=== PATIENT | female | born 1990 | race Caucasian/White ===

== ENCOUNTER → 2016-09-28 | Outpatient (CLI) | payer OTHER ==
[~2016-09-28] MED LIST: ACHD5005 PO; AZIT-21 PO; BIRTH CONTROL PO; CEPH500C PO; DESO60OI5 TP; DOXY100C2 PO; FLUO20CA25; FLUO20CA25 PO; FLUO40CA12 PO; FRS325T PO; HYDR-707 PO; IBP600T1 PO; Ibuprofen PO; MTH.2T PO; NAPR-243 PO; NORG1TAB6 PO; ONDA8TAB9 PO; PREN-115 PO; PREN-93 PO; PREN1TAB64 PO; TRM50T PO
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
--- NOTE | 2016-09-28 14:54 | Diagnostic Imaging Report ---
EXAMINATION: Right breast ultrasound. INDICATION: Right breast pain. FINDINGS: There are superficial subcutaneous anechoic structures with some appearing to be connected and some are with no internal vascularity seen. No solid component is identified. These are favored to be related to cysts or dilated ducts. There is no suspicious mass identified. IMPRESSION: Scattered simple appearing cysts and dilated ducts with no suspicious mass. ACR BI-RADS Category 2: Benign findings. Dictated by: Dictated on workstation # [id number]
== END ==
LOC: RAD 07:36
PROVIDERS: ATTEND Family Medicine
DX: N60.11 Diffuse cystic mastopathy of right breast (principal); N60.41 Mammary duct ectasia of right breast
CPT/HCPCS: 76641

== ENCOUNTER 2016-10-21 10:13 | Emergency (ER) | payer SELFPAY ==
[~2016-10-21] VITALS: Ht 162.6 cm; Wt 68.0 kg
[~2016-10-21 10:13] MED LIST changes: -FLUO40CA12 PO
[2016-10-21] MEDS ORDERED: FLUO40CA12 PO (10:37)
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
--- NOTE | 2016-10-21 12:45 | Diagnostic Imaging Report ---
PROCEDURE: US PELVIC (NON OB). TECHNIQUE: Multiple real-time grayscale images were obtained over the pelvis in various projections transabdominally. INDICATION: Positive home test but the test in the ER is negative. Patient feels her IUD is out of place. Evaluate for location. COMPARISON: None available. FINDINGS: The uterus measures 6.6 x 4.1 x 3.2 cm. No myometrial mass. The echogenic IUD is appropriately positioned in the endometrial canal with the most proximal aspect at the level of the fundus. There are echogenic limbs of the IUD extending into the bilateral cornua. No endometrial fluid or thickening. Both ovaries are visualized and physiologic in appearance. The right ovary measures 3.3 x 3.0 x 2.0 cm. The left ovary measures 3.3 x 2.3 x 1.7 cm. Blood flow is seen in both ovaries by color Doppler and spectral duplex imaging. No free pelvic fluid or suspicious adnexal mass. IMPRESSION: 1. No evidence of intrauterine or ectopic . 2. The IUD is appropriately positioned within the endometrial canal with the proximal aspect of the IUD at the level of the fundus. 3. Physiologic appearance of both ovaries. Dictated by: Dictated on workstation # [id number]
[2016-10-21 12:58] VITALS: BP 121/77
--- OUTSIDE RECORDS SUMMARY | 2016-10-25 04:51 | XMS REPORT ---
Author JALEESA Crocker [facility] [employer] Address Unknown Phone Unavailable Care Team Providers Care Principal Bioinformatics Specialist Name Role Phone JALEESA SEVILLA CP Unavailable Allergies No Known Allergies Problems Problem Type Condition Code Onset Dates Condition Status Assessment Depression with anxiety F41.8 Active Problem Depression with anxiety F41.8 Active Medications Medication Code System Code Instructions Start Date End Date Status Dosage Prozac [facility] [address]-14 20 MG Orally Once a day. APPT REQUIRED BEFORE REFILL Jun 07, 2015 1 capsule in the morning Results No Known Results Summary Purpose [employer] Submission
--- OUTSIDE RECORDS SUMMARY | 2016-10-25 04:51 | XMS REPORT ---
Author MICHELL Worley Organization [employer] Address Unknown Phone Unavailable Care Team Providers Care Vat Washer Name Role Phone MICHELL HANNA CP Unavailable Allergies, Adverse Reactions, Alerts Substance Reaction Event Type Bactrim DS Info Not Available Drug Allergy Problems Problem Type Condition Code Onset Dates Condition Status Assessment Depression with anxiety F41.8 Active Problem Depression with anxiety F41.8 Active Medications Medication Code System Code Instructions Start Date End Date Status Dosage Prozac [facility] [address]-19 40 mg Orally Once a day May 05, 2016 1 capsule in the morning HydrOXYzine HCl [facility] [address]-65 25 MG Orally 2 times a day as needed for anxiety symptoms Jun 07, 2015 1 tablet as needed BusPIRone HCl [facility] [address]-15 10 mg Orally Twice a day prn May 05, [address] [facility] [address]-87 20 MCG/24HR Intrauterine not defined Prozac [facility] 44837952023 20 MG Orally Once a day one daily in the am Procedures Procedure Coding System Code Date Office Visit, Est Pt., Level 3 CPT-4 85881 May 05, 2016 Vital Signs Date/Time: May 05, 2016 Cardiac Monitoring Heart Rate 76 bpm Weight 146.9 lbs Height 65 in BMI 24.44 Index Blood Pressure Diastolic 72 mmHg Blood Pressure Systolic 112 mmHg Results No Known Results Summary Purpose [employer] Submission
--- OUTSIDE RECORDS SUMMARY | 2016-10-25 04:51 | XMS REPORT ---
Author MICHELL Worley [facility] [employer] Address Unknown Phone Unavailable Care Team Providers Care Clamp Operator Name Role Phone MICHELL HANNA Unavailable Allergies No Known Allergies Problems Problem Type Condition Code Onset Dates Condition Status Problem Depression with anxiety F41.8 Active Medications Medication Code System Code Instructions Start Date End Date Status Dosage Prozac [facility] [address]-94 40 mg Orally Once a day May 05, 2016 1 capsule in the morning Results No Known Results Summary Purpose [employer] Submission
--- OUTSIDE RECORDS SUMMARY | 2016-10-25 04:51 | XMS REPORT ---
Author Author KARISSA BHATIA Organization [employer] Address Unknown Phone Unavailable Care Team Providers Care Adobe Ball Mixer Name Role Phone KARISSA BHATIA CP Unavailable Allergies No Known Allergies Problems Problem Type Condition Code Onset Dates Condition Status Assessment Depression with anxiety F41.8 Active Problem Depression with anxiety F41.8 Active Medications No Known Medications Procedures Procedure Coding System Code Date Psych diagnostic evaluation, established patient CPT-4 77646 Jun 07, 2015 Results No Known Results Summary Purpose [employer] Submission
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
--- OUTSIDE RECORDS SUMMARY | 2016-10-25 04:52 | XMS REPORT ---
Author Author JALEESA SEVILLA [facility] [employer] Address Unknown Phone Unavailable Care Team Providers Care Metal Precision Machine Assembler Name Role Phone JALEESA SEVILLA CP Unavailable Allergies, Adverse Reactions, Alerts Substance Reaction Event Type Bactrim Ds 800-160 Mg Tablet Info Not Available Non Drug Allergy Problems Problem Type Condition Code Onset Dates Condition Status Assessment Depression with anxiety F41.8 Active Problem Depression with anxiety F41.8 Active Medications Medication Code System Code Instructions Start Date End Date Status Dosage HydrOXYzine HCl [facility] [address]-88 25 MG Orally 2 times a day as needed for anxiety symptoms Jun 07, 2015 1 tablet as needed Prozac [facility] [address]-63 20 MG Orally Once a day Jun 07, 2015 1 capsule in the morning Procedures Procedure Coding System Code Date Office Visit, Est Pt., Level 3 CPT-4 13658 Jun 07, 2015 Vital Signs Date/Time: Jun 07, 2015 Temperature 97.3 F Weight 146.6 lbs Height 65 in BMI 24.39 Index Blood Pressure Diastolic 70 mmHg Blood Pressure Systolic 110 mmHg Cardiac Monitoring Heart Rate 82 bpm Results No Known Results Summary Purpose eClinical[employer] Submission
--- OUTSIDE RECORDS SUMMARY | 2016-10-25 04:52 | XMS REPORT ---
Author JALEESA Crocker [facility] [employer] Address Unknown Phone Unavailable Care Team Providers Care Plush Brusher Name Role Phone JALEESA SEVILLA CP Unavailable Allergies, Adverse Reactions, Alerts Substance Reaction Event Type Bactrim Ds 800-160 Mg Tablet Info Not Available Non Drug Allergy Problems Problem Type Condition Code Onset Dates Condition Status Assessment Depression with anxiety F41.8 Active Assessment Encounter for immunization Z23 Active Problem Depression with anxiety F41.8 Active Medications Medication Code System Code Instructions Start Date End Date Status Dosage Prozac [facility] [address]-16 10 MG Orally Once a day May 03, 2015 1 capsule in the morning Procedures Procedure Coding System Code Date FLUARIX QUAD (3 & UP)-GSK CPT-4 14415 May 03, 2015 SINGLE IMMUNIZATION ADMIN CPT-4 57405 May 03, 2015 Office Visit, New Pt., Level 4 CPT-4 21631 May 03, 2015 Vital Signs Date/Time: May 03, 2015 Temperature 98.2 F Weight 149 lbs Height 65 in BMI 24.79 Index Blood Pressure Diastolic 80 mmHg Blood Pressure Systolic 112 mmHg Cardiac Monitoring Heart Rate 80 bpm Results No Known Results Immunizations Vaccine Administration Date FLUARIX QUAD (3 & UP)-GSK-2014May 03, 2015 Summary Purpose eClinicalWorks Submission
--- OUTSIDE RECORDS SUMMARY | 2016-10-25 04:52 | XMS REPORT ---
Author Author MICHELL HANNA [facility] Address [address] [place] [address] Care Team Providers Care Lab Coordinator Name Role Phone MICHELL HANNA Unavailable PROBLEMS Type Condition ICD9-CM Code [id number] Code Onset Dates Condition Status SNOMED Code Problem Depression with anxiety F41.8 Active [id number] ALLERGIES Unknown Allergies SOCIAL HISTORY No smoking Hx information available PLAN OF CARE VITAL SIGNS MEDICATIONS Medication Instructions Dosage Frequency Start Date End Date Duration Status Prozac 40 mg Orally Once a day- must attend 07/24 appt 1 capsule in the morning May, Active RESULTS No Results PROCEDURES No Known procedures IMMUNIZATIONS No Known Immunizations
== END 2016-10-21 12:58 | disposition home or self-care (01) ==
LOC: ER 10:13
DX: R10.31 Right lower quadrant pain (principal); Z32.02 Encounter for pregnancy test, result negative; F17.210 Nicotine dependence, cigarettes, uncomplicated
CPT/HCPCS: 76856; 84703; 99282

== ENCOUNTER 2018-02-08 10:50 | Emergency (ER) | payer SELFPAY ==
[~2018-02-08] VITALS: Ht 162.6 cm; Wt 79.4 kg
[~2018-02-08 10:50] MED LIST changes: +FLUO40CA12 PO
[2018-02-08 11:20] LABS: BILIRUBIN,URINE NEGATIVE (NEGATIVE); CLARITY,URINE CLEAR; COLOR,URINE YELLOW; GLUCOSE, URINE (UA) NEGATIVE (NEGATIVE); KETONES,URINE NEGATIVE (NEGATIVE); LEUKOCYTE ESTERASE ,URINE NEGATIVE (NEGATIVE); NITRITE,URINE NEGATIVE (NEGATIVE); PH,URINE 6.5 (5-9); PROTEIN,URINE NEGATIVE (NEGATIVE); UROBILINOGEN,URINE NORMAL (NORMAL)
[2018-02-08 11:26] LABS: BACTERIA,URINE TRACE /HPF; RBC,URINE RARE /HPF
--- NOTE | 2018-02-08 11:26 | ED Abdominal Pain ---
General Chief Complaint: Abdominal/GI Problems Stated Complaint: RLQ PAIN Source of Information: Patient Exam Limitations: No Limitations History of Present Illness Date Seen by Provider: Feb 08, 2018 Time Seen by Provider: 11:10 Initial Comments Patient is a 27-year-old female who presents to the emergency room with complaints of right lower quadrant abdominal pain started yesterday. She denies any vomiting, diarrhea, constipation, reports nausea for the past 2 days. She denies any hematuria, frequency, burning with urination. She reports that the pain comes and goes but is usually a constant pain of 4-5 out of 10 on the pain scale that has gradually been getting worse. The patient reports that the pain is worse with walking. Timing/Duration: 1-2 Days Severity/Quality: Mild Location: RLQ Radiation: No Radiation Activities at Onset: None Modifying Factors: Improves With Movement, Improves With Other (walking) Associated Symptoms: No Back Pain, No Chest Pain, No Diaphoresis, No Fatigue, No Headache; Nausea/Vomiting Allergies and Home Medications Allergies Coded Allergies: sulfamethoxazole (Unverified Allergy, Unknown, RASH, 11/18/13) trimethoprim (Unverified Allergy, Unknown, RASH, 11/18/13) Home Medications Fluoxetine HCl 40 Mg Capsule, 40 MG PO DAILY, (Reported) Patient Home Medication List Home Medication List Reviewed: Yes Review of Systems Constitutional: see HPI; No chills, No diaphoresis EENTM: No Symptoms Reported Respiratory: See HPI; Denies Cough, Denies Shortness of Air, Denies Wheezing Cardiovascular: See HPI; Denies Chest Pain, Denies Edema, Denies Palpitations Gastrointestinal: See HPI; Denies Abdomen Distended; Abdominal Pain; Denies Blood Streaked Stools, Denies Constipated, Denies Diarrhea, Denies Difficulty Swallowing; Nausea; Denies Vomiting Genitourinary: See HPI; Denies Burning, Denies Discharge, Denies Drainage Musculoskeletal: see HPI; No back pain, No gout, No joint pain Skin: see HPI; No change in color, No change in hair/nails Psychiatric/Neurological: See HPI; Denies Anxiety, Denies Depressed Endocrine: See HPI; Denies Excessive Sweating, Denies Flushing Hematologic/Lymphatic: See HPI; Denies Anemia, Denies Blood Clots All Other Systems Reviewed Negative Unless Noted: Yes Past Typxrtb-Zaktac-Hwjhjl Hx Past Med/Social Hx: Reviewed Nursing Past Med/Soc Hx Patient Social History Type Used: Cigarettes Recent Foreign Travel: No Contact w/Someone Who Travel: No Recent Hopitalizations: No Immunizations Up To Date Tetanus Booster (TDap): Less than 5yrs Seasonal Allergies Seasonal Allergies: No Past Medical History Adenoidectomy Reproductive Disorders: No Female Reproductive Disorders: Ovarian Cyst [employer] History: IUD Anxiety, Violent Behavior, Depression Eczema Adverse Reaction/Blood Tranf: No Family Medical History Reviewed Nursing Family Hx FH: rheumatoid arthritis 19 MOTHER, Onset:Childhood Physical Exam Vital Signs Vital Signs - First Documented 02/08/18 11:03 Temp 98.6 Pulse 91 Resp 18 B/P (MAP) 109/79 (89) Pulse Ox 98 O2 Delivery Room Air Capillary Refill : Height/Weight/BMI Height: 5', 4.00" Weight: 150lbs 6.0oz, [id number] Method:Stated ,30.55BMI General Appearance: WD/WN, no apparent distress HEENT: PERRL/EOMI, normal ENT inspection, TMs normal Neck: non-tender, full range of motion, supple Respiratory: chest non-tender, lungs clear, normal breath sounds, no respiratory distress, no accessory muscle use Cardiovascular: normal peripheral pulses, regular rate, rhythm, no edema, no gallop, no JVD, no murmur Gastrointestinal: normal bowel sounds, soft, no organomegaly, no pulsatile mass , tenderness (the patient is very tender in the right lower quadrant area. ), other (positive Leedey sign and the patient's right foot was dre.) Extremities: normal range of motion, non-tender, normal inspection, no pedal edema, no calf tenderness Back: normal inspection, no CVA tenderness, no vertebral tenderness Neurologic/Psychiatric: alert, normal mood/affect, oriented x 3 Skin: normal color, warm/dry Lymphatic: no adenopathy Progress/Results/Core Measures Results/Orders Lab Results Laboratory Tests Test 02/08/18 11:08 02/08/18 11:35 Range/Units Urine Color YELLOW Urine Clarity CLEAR Urine pH 6.5 5-9 Urine Specific [place] 1.010 L 1.016-1.022 Urine Protein NEGATIVE NEGATIVE Urine Glucose (UA) NEGATIVE NEGATIVE Urine Ketones NEGATIVE NEGATIVE Urine Nitrite NEGATIVE NEGATIVE Urine Bilirubin NEGATIVE NEGATIVE Urine Urobilinogen NORMAL NORMAL MG/DL Urine Leukocyte Esterase NEGATIVE NEGATIVE Urine RBC (Auto) NEGATIVE NEGATIVE Urine RBC RARE /HPF Urine WBC NONE /HPF Urine Squamous Epithelial Cells 2-5 /HPF Urine Crystals NONE /LPF Urine Bacteria TRACE /HPF Urine Casts NONE /LPF Urine Mucus NEGATIVE /LPF Urine Culture Indicated NO White Blood Count 7.0 4.3-11.0 10^3/uL Red Blood Count 4.17 L 4.35-5.85 10^6/uL Hemoglobin 14.1 11.5-16.0 G/DL Hematocrit 41 35-52 % Mean Corpuscular Volume 98 80-99 FL Mean Corpuscular Hemoglobin 34 25-34 PG Mean Corpuscular Hemoglobin Concent 35 32-36 G/DL Red Cell Distribution Width 12.4 10.0-14.5 % Platelet Count 195 130-400 10^3/uL Mean Platelet Volume 10.6 H 7.4-10.4 FL Neutrophils (%) (Auto) 65 42-75 % Lymphocytes (%) (Auto) 25 12-44 % Monocytes (%) (Auto) 7 0-12 % Eosinophils (%) (Auto) 3 0-10 % Basophils (%) (Auto) 0 0-10 % Neutrophils # (Auto) 4.6 1.8-7.8 X 10^3 Lymphocytes # (Auto) 1.8 1.0-4.0 X 10^3 Monocytes # (Auto) 0.5 0.0-1.0 X 10^3 Eosinophils # (Auto) 0.2 0.0-0.3 10^3/uL Basophils # (Auto) 0.0 0.0-0.1 10^3/uL Sodium Level 139 135-145 MMOL/L Potassium Level 3.9 3.6-5.0 MMOL/L Chloride Level 107 98-107 MMOL/L Carbon Dioxide Level 24 21-32 MMOL/L Anion Gap 8 5-14 MMOL/L Blood Urea Nitrogen 10 7-18 MG/DL Creatinine 0.74 0.60-1.30 MG/DL Estimat Glomerular Filtration Rate > 60 BUN/Creatinine Ratio 14 Glucose Level 87 70-105 MG/DL Calcium Level 9.4 8.5-10.1 MG/DL Total Bilirubin 0.5 0.1-1.0 MG/DL Aspartate Amino Transf (AST/SGOT) 17 5-34 U/L Alanine Aminotransferase (ALT/SGPT) 16 0-55 U/L Alkaline Phosphatase 54 40-136 U/L Total Protein 6.9 6.4-8.2 GM/DL Albumin 4.2 3.2-4.5 GM/DL My Orders Orders - DEVIN BAXTER Ua Culture If Indicated (02/08/18 10:55) Urine Bedside (02/08/18 10:55) Ketorolac Injection (Toradol Injection) (02/08/18 11:30) Ns Iv 1000 Ml (Sodium Chloride 0.9%) (02/08/18 11:30) Ondansetron Injection (Zofran Injectio (02/08/18 11:30) Comprehensive Metabolic Panel (02/08/18 11:19) Saline Lock/Iv-Start (02/08/18 11:19) Cbc With Automated Diff (02/08/18 11:19) Ct Abdomen/Pelvis W (02/08/18 11:46) Iohexol Injection (Omnipaque 350 Mg/Ml 1 (02/08/18 12:00) Ns (Ivpb) (Sodium Chloride 0.9%) (02/08/18 12:00) Pharmacy Communication (Pharmacy Communi (02/08/18 11:48) Iv Push [employer] Technician Ed (02/08/18 ) Medications Given in ED Vital Signs/I&O 02/08/18 02/08/18 02/08/18 11:03 12:19 13:27 Temp 98.6 98.2 98.6 Pulse 91 62 72 Resp 18 20 20 B/P (MAP) 109/79 (89) 103/69 (80) 111/67 (80) Pulse Ox 98 99 99 O2 Delivery Room Air Room Air Room Air Progress Progress Note : Time: 13:05 Progress Note The patient's pain has resolved at this time, her nausea is gone. She agrees with complains of discharge and close follow-up with Dao Bo at [facility]. A prescription for Zofran 4 mg every 4 hours when necessary was sent with the patient. Diagnostic Imaging Diagonstic Imaging: CT Plain Films/CT/US/NM/MRI: abdomen, pelvis Comments [facility] [place] NAME: GARY SEWELL Clint MED REC#: [id number] PT STATUS: REG ER : 1990 PHYSICIAN: DEVIN BAXTER ADMIT DATE: 02/08/18/ER Draft Date of Exam:02/08/18 CT ABDOMEN/PELVIS W PROCEDURE: CT abdomen and pelvis with contrast. TECHNIQUE: Multiple contiguous axial images were obtained through the abdomen and pelvis after administration of intravenous contrast. INDICATION: Right lower quadrant pain. FINDINGS: The previous CT abdomen/pelvis exam of 01/14/2016 failed to show any sign of an acute abnormality of the abdomen or pelvis. On this exam, the appendix was not particularly well visualized, but the appendix is not seen to be abnormally thickened. There are no indirect signs of acute appendicitis either. The uterus is anteverted and not enlarged. The IUD seen on the prior exam has been removed. The urinary bladder is grossly unremarkable. There is no pelvic mass or free fluid collection noted. The liver, spleen, pancreas, adrenals, kidneys, gallbladder, aorta, and inferior vena cava are unremarkable for an acute abnormality. The stomach is partially filled with fluid and consequently difficult to assess. There is no obvious gastric abnormality evident. The lung bases are clear. The bone windows show no evidence for an acute fracture. The deformity of the sacrococcygeal junction seen previously is again evident and no different. IMPRESSION: 1. The appendix was not well visualized, but the appendix is not seen to be abnormally thickened, and there is no indirect sign of acute appendicitis at this time. Clinical followup is recommended. 2. There is no acute abnormality of the abdomen or pelvis noted. 3. The IUD seen on the prior study has been removed. Dictated on workstation # [id number] Dict: 02/08/18 1240 Trans: 02/08/18 1251 [id number] Interpreted by: FLAKITO ALATORRE MD Electronically signed by: Reviewed: Reviewed by Me Departure Impression Primary Impression: Abdominal pain Qualified Codes: R10.9 - Unspecified abdominal pain Additional Impression: Nausea alone Disposition: 01 HOME, SELF-CARE Condition: Stable/Unchanged Departure-Patient Inst. Decision time for Depature: 13:04 Referrals: DAO BO APRN (PCP) Primary Care Physician Patient Instructions: Acute Abdomen (Belly Pain), Adult (DC) Add. Discharge Instructions: Take medications as directed. You may use ibuprofen and Tylenol as directed by the bottle for pain relief. Return back to the emergency room for any increased pain, nausea, vomiting, or any other concerns as needed. Follow-up with Dao Bo at [facility] within 1 week for evaluation. Call today for an appointment time. All discharge instructions reviewed with patient and/or family. Voiced understanding. Copy Copies To 1: [facility]/DEVIN SAGASTUME Feb 08, 2018 11:26
[2018-02-08] MEDS ORDERED: KETOROLAC 30 MG/ML VIAL IVP ONE (11:30)
[2018-02-08] MEDS ORDERED: ONDANSETRON 4 MG/2 ML (SDV) Z0FRAN IVP ONE (11:30)
[2018-02-08] MEDS ORDERED: NS IV 1000 ML 1,000 ML IV SCH (11:30)
[2018-02-08 11:47] LABS: BASOPHILS % (AUTO) 0 % (0-10); EOSINOPHILS # (AUTO) 0.2 10^3/uL (0.0-0.3); EOSINOPHILS % (AUTO) 3 % (0-10); HEMATOCRIT 41 % (35-52); HEMOGLOBIN 14.1 G/DL (11.5-16.0); LYMPHOCYTES # (AUTO) 1.8 X 10^3 (1.0-4.0); LYMPHOCYTES % (AUTO) 25 % (12-44); MEAN CORPUSCULAR HEMOGLOBIN 34 PG (25-34); MEAN CORPUSCULAR HGB CONC 35 G/DL (32-36); MEAN CORPUSCULAR VOLUME 98 FL (80-99); MEAN PLATELET VOLUME 10.6 FL (7.4-10.4); MONOCYTES # (AUTO) 0.5 X 10^3 (0.0-1.0); MONOCYTES % (AUTO) 7 % (0-12); NEUTROPHILS # (AUTO) 4.6 X 10^3 (1.8-7.8); NEUTROPHILS % (AUTO) 65 % (42-75); PLATELET COUNT 195 10^3/uL (130-400); RED BLOOD COUNT 4.17 10^6/uL (4.35-5.85); RED CELL DISTRIBUTION WIDTH 12.4 % (10.0-14.5)
[2018-02-08] MEDS ORDERED: IOHEXOL 350 MG/ML 100 ML (OMNIPAQUE 350) VIAL IV ONE (12:00)
[2018-02-08] MEDS ORDERED: NS 250 ML (IVPB) BAG IV ONE (12:00)
[2018-02-08 12:12] LABS: ALANINE AMINOTRANSFERASE 16 U/L (0-55); ALBUMIN 4.2 GM/DL (3.2-4.5); ALKALINE PHOSPHATASE 54 U/L (40-136); BILIRUBIN,TOTAL 0.5 MG/DL (0.1-1.0); BUN/CREATININE RATIO 14; CALCIUM 9.4 MG/DL (8.5-10.1); CARBON DIOXIDE 24 MMOL/L (21-32); CHLORIDE 107 MMOL/L (98-107); CREATININE SERUM 0.74 MG/DL (0.60-1.30); GFR ESTIMATED > 60; GLUCOSE 87 MG/DL (70-105); POTASSIUM 3.9 MMOL/L (3.6-5.0); SODIUM 139 MMOL/L (135-145); TOTAL PROTEIN 6.9 GM/DL (6.4-8.2)
[2018-02-08 12:19] VITALS: BP 103/69
--- NOTE | 2018-02-08 12:52 | Diagnostic Imaging Report ---
PROCEDURE: CT abdomen and pelvis with contrast. TECHNIQUE: Multiple contiguous axial images were obtained through the abdomen and pelvis after administration of intravenous contrast. INDICATION: Right lower quadrant pain. FINDINGS: The previous CT abdomen/pelvis exam of 01/14/2016 failed to show any sign of an acute abnormality of the abdomen or pelvis. On this exam, the appendix was not particularly well visualized, but the appendix is not seen to be abnormally thickened. There are no indirect signs of acute appendicitis either. The uterus is anteverted and not enlarged. The IUD seen on the prior exam has been removed. The urinary bladder is grossly unremarkable. There is no pelvic mass or free fluid collection noted. The liver, spleen, pancreas, adrenals, kidneys, gallbladder, aorta, and inferior vena cava are unremarkable for an acute abnormality. The stomach is partially filled with fluid and consequently difficult to assess. There is no obvious gastric abnormality evident. The lung bases are clear. The bone windows show no evidence for an acute fracture. The deformity of the sacrococcygeal junction seen previously is again evident and no different. IMPRESSION: 1. The appendix was not well visualized, but the appendix does not seem to be abnormally thickened, and there are no indirect sign of acute appendicitis at this time. Clinical followup is recommended. 2. There is no acute abnormality of the abdomen or pelvis noted otherwise.. 3. The IUD seen on the prior study has been removed. Dictated by: Dictated on workstation # [id number]
[2018-02-08 13:27] VITALS: BP 111/67
== END 2018-02-08 13:27 | disposition home or self-care (01) ==
LOC: EDUNIT# 10:50 → ER 10:52
DX: R10.31 Right lower quadrant pain (principal); R11.0 Nausea; F32.9 Major depressive disorder, single episode, unspecified; Z88.2 Allergy status to sulfonamides; Z88.1 Allergy status to other antibiotic agents; Z90.89 Acquired absence of other organs
CPT/HCPCS: 36415; 74177; 80053; 81000; 84703; 85025; 96361; 96374; 96375

== ENCOUNTER → 2019-12-05 | Outpatient (CLI) | payer MEDICAID ==
[~2019-12-05] MED LIST changes: -FLUO20CA25 PO; +FLUO20CA46 PO
--- NOTE | 2019-12-05 15:09 | Diagnostic Imaging Report ---
INDICATION: survey. TECHNIQUE: Multiple Real-time grayscale images were obtained over the gravid uterus. COMPARISON: There are no prior studies available for comparison. FINDINGS: There is a single live fetus in cephalic presentation. heart motion was noted and a rate of 160 BPM was recorded. There were no abnormalities identified; however, the spine was not well visualized due to lie. A short-term (4-6 week) followup exam would be recommended for further evaluation of the spine. The placenta is posterior and there does appear to be at least a partial placenta previa. The position of the placenta could also be further evaluated on the followup exam. The cervix was identified and measures 3.2 cm in length. The amniotic fluid volume is within normal limits. The growth parameters are fairly uniform. Biometrical measurements are as follows: Biparietal 4.10 cm, age 18 weeks 4 days. Head circumference 14.98 cm, age 18 weeks 1 days. Abdominal circumference 12.20 cm, age 18 weeks 0 days. Femur length 2.80 cm, age 18 weeks 4 days. Sonographic estimate age: 18 weeks 3 days. Sonographic estimated date of delivery: 05/04/2020. Estimated Weight: 228 gm (+/- 33 gm). LMP percentile: 19%. heart rate: 160 beats per minute. number: 1 of 1. IMPRESSION: 1. There is a single live fetus of approximately 18 weeks 3 days gestation +/- 1.5 weeks. The EDC is 05/04/2020. 2. There are no abnormalities identified but the spine was not well visualized. A short-term (4-6 week) followup ultrasound exam would be recommended for further evaluation. The partial posterior placenta previa seen previously could also be further evaluated at that time. 3. The growth parameters are fairly uniform. Dictated by: Dictated on workstation # [id number]
== END ==
LOC: RAD 11:06
PROVIDERS: ATTEND Obstetrics & Gynecology
DX: Z34.92 Encounter for supervision of normal pregnancy, unspecified, second trimester (principal); Z3A.18 18 weeks gestation of pregnancy
CPT/HCPCS: 76805

== ENCOUNTER 2019-12-24 04:02 | Outpatient (CLI) | payer MEDICAID ==
[~2019-12-24] VITALS: Ht 162.6 cm; Wt 66.9 kg
--- NOTE | 2019-12-24 04:17 | NUR ---
GARY SEWELL presented to unit via WC from ED, accompanied by friend, with c/o N/V. GARY SEWELL weighed, gowned, voided, and to bed. EFHM and TOCO applied, VS taken. GARY SEWELL oriented to bed controls, call light, TV, heat, and A/C controls.
[2019-12-24] MEDS ORDERED: NS IV 1000 ML 1,000 ML ONE (04:21)
[2019-12-24] MEDS ORDERED: PROMETHAZINE INJ 25 MG/ML (PHENERGAN) AMP ONE (04:25)
--- NOTE | 2019-12-24 04:26 | NUR ---
Call to Dr Garcia at this time.
[2019-12-24 04:27] VITALS: BP 89/53
[2019-12-24] MEDS ORDERED: PROMETHAZINE INJ 25 MG/ML (PHENERGAN) AMP IVP PRN (04:30)
[2019-12-24] MEDS ORDERED: NS IV 1000 ML 1,000 ML IV SCH (04:30)
[2019-12-24 04:53] VITALS: BP 89/53
[2019-12-24 05:15] LABS: BASOPHILS % (AUTO) 0 % (0-10); EOSINOPHILS % (AUTO) 0 % (0-10); HEMATOCRIT 40 % (35-52); HEMOGLOBIN 13.6 G/DL (11.5-16.0); LYMPHOCYTES # (AUTO) 1.1 X 10^3 (1.0-4.0); LYMPHOCYTES % (AUTO) 8 % (12-44); MEAN CORPUSCULAR HEMOGLOBIN 33 PG (25-34); MEAN CORPUSCULAR HGB CONC 34 G/DL (32-36); MEAN CORPUSCULAR VOLUME 98 FL (80-99); MEAN PLATELET VOLUME 10.9 FL (7.4-10.4); MONOCYTES # (AUTO) 0.5 X 10^3 (0.0-1.0); MONOCYTES % (AUTO) 3 % (0-12); NEUTROPHILS # (AUTO) 12.4 X 10^3 (1.8-7.8); NEUTROPHILS % (AUTO) 89 % (42-75); PLATELET COUNT 259 10^3/uL (130-400); RED CELL DISTRIBUTION WIDTH 12.7 % (10.0-14.5)
[2019-12-24 05:19] LABS: CHLORIDE 108 MMOL/L (98-107); POTASSIUM 3.4 MMOL/L (3.6-5.0); SODIUM 139 MMOL/L (135-145)
[2019-12-24 05:20] LABS: CALCIUM 9.3 MG/DL (8.5-10.1)
[2019-12-24 05:21] LABS: GLUCOSE 131 MG/DL (70-105); TOTAL PROTEIN 7.3 GM/DL (6.4-8.2)
[2019-12-24 05:22] LABS: CARBON DIOXIDE 19 MMOL/L (21-32)
[2019-12-24 05:23] LABS: CLARITY,URINE CLEAR; COLOR,URINE YELLOW; GLUCOSE, URINE (UA) NEGATIVE (NEGATIVE); KETONES,URINE 3+ (NEGATIVE); LEUKOCYTE ESTERASE ,URINE TRACE (NEGATIVE); NITRITE,URINE NEGATIVE (NEGATIVE); PH,URINE 7.5 (5-9); PROTEIN,URINE 1+ (NEGATIVE)
[2019-12-24 05:23] LABS: BILIRUBIN,TOTAL 0.4 MG/DL (0.1-1.0)
[2019-12-24 05:25] LABS: ALKALINE PHOSPHATASE 51 U/L (40-136); CREATININE SERUM 0.67 MG/DL (0.60-1.30); GFR ESTIMATED > 60
[2019-12-24 05:26] LABS: BUN/CREATININE RATIO 10
[2019-12-24 05:28] LABS: ALANINE AMINOTRANSFERASE 16 U/L (0-55)
[2019-12-24 05:39] LABS: BILIRUBIN,URINE 1+ (NEGATIVE)
[2019-12-24 05:52] LABS: BACTERIA,URINE TRACE /HPF; RBC,URINE 0-2 /HPF; YEAST,URINE FEW /HPF
[2019-12-24 05:56] VITALS: BP 89/53
[2019-12-24] MEDS ORDERED: PROM25TA14 PO (06:06)
[2019-12-24 06:11] VITALS: BP 90/51
--- NOTE | 2019-12-24 06:12 | NUR ---
Orders for discharge obtained, FHR 140 VS stable and pt willing to go home.
--- NOTE | 2019-12-24 06:15 | NUR ---
crackers and sprite given for oral challenge
--- NOTE | 2019-12-24 06:17 | NUR ---
Linda called into [facility]
--- NOTE | 2019-12-24 06:30 | NUR ---
Pt is feeling better. able to keep po challenge down. along with crackers. Pt ready for discharge. Discharge paperwork completed. pt verbalized understanding. pt will follow up with in office.
[2019-12-24 06:34] VITALS: BP 90/51
--- NOTE | 2019-12-26 08:24 | Physician Query-Final Dx ---
Clinic Account Progress/Dx Physician Query: Please give diagnosis Please include # weeks gestation Date of Service December 24, 2019 at 04:02 DORINA CORTEZ December 26, 2019 08:23
== END 2019-12-24 06:30 ==
LOC: WSo 04:02 → LDRP 04:04 → WSo 06:30
PROVIDERS: ATTEND Obstetrics & Gynecology
DX: O21.9 Vomiting of pregnancy, unspecified (principal)
CPT/HCPCS: 36415; 80053; 81000; 85025; 87088; 96361; 96374; 99213

== ENCOUNTER → 2020-01-16 | Outpatient (CLI) | payer MEDICAID ==
[~2020-01-16] MED LIST changes: +PROM25TA14 PO
--- NOTE | 2020-01-16 14:43 | Diagnostic Imaging Report ---
INDICATION: Followup spine and placenta previa. TECHNIQUE: Multiple Real-time grayscale images were obtained over the gravid uterus. COMPARISON: 12/05/2019. FINDINGS: There is a single live fetus in a cephalic presentation. The heart rate was recorded at 139 BPM. The posterior placenta continues to be in a marginal location in relation to the internal cervical os. This does not appear to completely cover the os. The visualized spine is unremarkable. The amniotic fluid volume is normal. IMPRESSION: Marginal posterior placenta previa. The spine is unremarkable. Dictated by: Dictated on workstation # [id number]
== END ==
LOC: RAD 11:58
PROVIDERS: ATTEND Nurse Practitioner Women's Health
DX: O44.20 Partial placenta previa NOS or without hemorrhage, unspecified trimester (principal)
CPT/HCPCS: 76816

== ENCOUNTER → 2020-02-21 | Outpatient (CLI) | payer MEDICAID ==
--- NOTE | 2020-02-21 15:47 | Diagnostic Imaging Report ---
INDICATION: Marginal placenta previa. TECHNIQUE: Multiple real-time grayscale images were obtained over the gravid uterus. COMPARISON: 01/16/2020. FINDINGS: There is a single live fetus in a cephalic presentation. heart rate was recorded at 132 bpm. Posterior placenta continues to be in a marginal location with tip approximately 9 mm from the internal cervical os. Amniotic fluid index is 12.9 cm. Biometrical measurements are as follows: Biparietal 7.66 cm, age 30 weeks 6 days. Head circumference 27.84 cm, age 30 weeks 4 days. Abdominal circumference 24.85 cm, age 29 weeks 1 days. Femur length 5.79 cm, age 30 weeks 3 days. Sonographic estimate age: 30 weeks 2 days. Sonographic estimated date of delivery: 04/29/2020. Estimated Weight: 1444 gm (+/- 211 gm). LMP percentile: 33%. heart rate: 132 beats per minute. number: 1 of 1. IMPRESSION: Single live IUP approximately 30 weeks gestational age. Placenta continues to be in a marginal location. Dictated by: Dictated on workstation # [id number]
== END ==
LOC: RAD 13:49
PROVIDERS: ATTEND Obstetrics & Gynecology
DX: O44.20 Partial placenta previa NOS or without hemorrhage, unspecified trimester (principal); Z3A.30 30 weeks gestation of pregnancy
CPT/HCPCS: 76805

== ENCOUNTER 2020-04-11 00:04 | Emergency (ER) | payer MEDICAID ==
[~2020-04-11] VITALS: Ht 162 cm; Wt 74.8 kg
[2020-04-11] MEDS ORDERED: LACTATED RINGERS 1,000 ML IV ONE (00:32)
[2020-04-11] MEDS ORDERED: ONDANSETRON 4 MG/2 ML (SDV) Z0FRAN IVP ONE (00:45)
--- NOTE | 2020-04-11 01:23 | ED General ---
General Stated Complaint: SOB,VOMITING Source of Information: Patient History of Present Illness Date Seen by Provider: Apr 11, 2020 Time Seen by Provider: 00:35 Initial Comments PT ARRIVES VIA POV FROM HOME STATES SHE STARTED GETTING SICK 2- 3 DAYS AGO WITH NON PRODUCTIVE COUGH AND CHEST AND NASAL CONGESTION IS STARTING TO BECOME SHORT OF BREATH TODAY HAS HAD NAUSEA/VOMITING /DIARRHEA--HAS VOMITED AT LEAST 10 TIMES TODAY, HAS HAD DIARRHEA X 1 NO ABDOMINAL PAIN HAS HAD SWEATS AND CHILLS, HAS NOT CHECKED TEMP NO CHEST PAIN NO SWELLING IN LEGS/ FEET HAS HAD DECREASED URINE OUTPUT TODAY PT IS 37 WEEKS GESTATION WITH EDC OF 05/02/20 NO PROBLEMS WITH THIS NO CURRENT CONTRACTIONS OR VAGINAL BLEEDING DAUGHTER AND HAVE HAD COUGH/CONGESTION--BOTH TESTED NEGATIVE FOR COVID --DAUGHTER LAST WEEK, AND 2 WEEKS AGO WORKS AT [employer] ( VERY HIGH PERCENTAGE OF WORKERS HAVE TESTED POSITIVE FOR COVID-19 THERE) RESP THER: DR. RANDALL--BUT HAS BEEN OUT OF OFFICE, AND EITHER DR. KHOURY OR DR. JONES WILL DO DELIVERY Allergies and Home Medications Allergies Coded Allergies: sulfamethoxazole (Unverified Allergy, Unknown, RASH, 04/11/20) trimethoprim (Unverified Allergy, Unknown, RASH, 04/11/20) Home Medications Azithromycin 500 Mg Tablet, 500 MG PO DAILY Prescribed by: GIANNI RICHARD on 04/11/20237 Cefdinir 300 Mg Capsule, 300 MG PO BID Prescribed by: GIANNI RICHARD on 04/11/20237 Fluoxetine HCl 40 Mg Capsule, 40 MG PO DAILY, (Reported) L. Acidophilus/Pectin, [place] 1 Each Capsule, 2 EACH PO QID Prescribed by: GIANNI RICHARD on 04/11/20237 Ondansetron 4 Mg Tab.rapdis, 4 MG PO Q4H Prescribed by: GIANNI RICHARD on 04/11/20237 Promethazine HCl 25 Mg Tablet, 25 MG PO Q6H PRN for NAUSEA/VOMITING Prescribed by: FARTUN OLIVERA on 12/24/19 0606 Patient Home Medication List Home Medication List Reviewed: Yes Review of Systems Review of Systems Constitutional: chills, diaphoresis, weakness EENTM: nose congestion Respiratory: cough, short of breath Cardiovascular: No chest pain, No edema Gastrointestinal: No abdominal pain; diarrhea, loss of appetite, nausea, vomiting Genitourinary: decreased output; No dysuria Past Upvfaii-Ekonlf-Cgkcnu Hx Past Med/Social Hx: Reviewed and Corrections made Patient Social History Smoking Status: Current Everyday Smoker (1 1/2 PPD) Type Used: Cigarettes 2nd Hand Smoke Exposure: No Recent Foreign Travel: No Contact w/Someone Who Travel: No Recent Hopitalizations: No Immunizations Up To Date Tetanus Booster (TDap): Less than 5yrs Seasonal Allergies Seasonal Allergies: No Past Medical History Surgeries: Yes (D&C) Adenoidectomy Respiratory: No Cardiac: No Neurological: No : Yes Expected Date of Delivery: May 02, 2020 Reproductive Disorders: Yes Female Reproductive Disorders: Ovarian Cyst Genitourinary: No Gastrointestinal: No Musculoskeletal: No Endocrine: No HEENT: No Cancer: No Psychosocial: No Anxiety, Violent Behavior, Depression Integumentary: Yes Eczema Blood Disorders: No Adverse Reaction/Blood Tranf: No Family Medical History FH: rheumatoid arthritis 19 MOTHER, Onset:Childhood Physical Exam Vital Signs Vital Signs - First Documented 04/11/20 01:00 Temp 36.8 Pulse 98 Resp 18 B/P (MAP) 130/78 (95) Pulse Ox 98 Capillary Refill : Height, Weight, BMI Height: 5'4.00" Weight: 175lbs. 6.0oz. 79.728582ts; 25.30 BMI Method:Stated General Appearance: No Apparent Distress, WD/WN, Other (DOES NOT APPEAR ILL, OCCASIONAL LOOSE COUGH) HEENT: PERRL/EOMI, TMs Normal, Normal ENT Inspection, Pharynx Normal, Moist Mucous Membranes, Other (NO SINUS TENDERNESS) Neck: Full Range of Motion, Normal Inspection, Non Tender, Supple; No JVD Respiratory: No Accessory Muscle Use, No Respiratory Distress, Rales (IN RLL) Cardiovascular: Regular Rate, Rhythm, No Edema, No JVD, No Murmur Gastrointestinal: Non Tender, Soft, Other (GRAVID UTERUS NEAR TERM) Back: Normal Inspection, No CVA Tenderness Extremity: Normal Capillary Refill, Normal Inspection, Normal Range of Motion, Non Tender, No Calf Tenderness, No Pedal Edema Neurologic/Psychiatric: Alert, Oriented x3, No Motor/Sensory Deficits, Normal 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, 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 Norm as Tested Skin: Normal Color, Warm/Dry Focused Exam Lactate Level 04/11/20 01:00: Lactic Acid Level 1.39 Lactic Acid Level Laboratory Tests Test 04/11/20 01:00 Lactic Acid Level 1.39 MMOL/L (0.50-2.00) Progress/Results/Core Measures Suspected Sepsis SIRS Temperature: Pulse: Respiratory Rate: Laboratory Tests 04/11/20 01:00: White Blood Count 13.8H Blood Pressure / Mean: 04/11/20 01:00: Lactic Acid Level 1.39 Laboratory Tests 04/11/20 01:00: Creatinine 0.64, INR Comment 0.9, Platelet Count 271, Total Bilirubin 0.6 Results/Orders Lab Results Laboratory Tests Test 04/11/20 01:00 04/11/20 01:17 04/11/20 02:00 Range/Units White Blood Count 13.8 H 4.3-11.0 10^3/uL Red Blood Count 4.10 L 4.35-5.85 10^6/uL Hemoglobin 13.8 11.5-16.0 G/DL Hematocrit 40 35-52 % Mean Corpuscular Volume 98 80-99 FL Mean Corpuscular Hemoglobin 34 25-34 PG Mean Corpuscular Hemoglobin Concent 34 32-36 G/DL Red Cell Distribution Width 12.4 10.0-14.5 % Platelet Count 271 130-400 10^3/uL Mean Platelet Volume 10.8 H 7.4-10.4 FL Neutrophils (%) (Auto) 85 H 42-75 % Lymphocytes (%) (Auto) 10 L 12-44 % Monocytes (%) (Auto) 5 0-12 % Eosinophils (%) (Auto) 0 0-10 % Basophils (%) (Auto) 0 0-10 % Neutrophils # (Auto) 11.7 H 1.8-7.8 X 10^3 Lymphocytes # (Auto) 1.4 1.0-4.0 X 10^3 Monocytes # (Auto) 0.7 0.0-1.0 X 10^3 Eosinophils # (Auto) 0.0 0.0-0.3 10^3/uL Basophils # (Auto) 0.0 0.0-0.1 10^3/uL Neutrophils % (Manual) 86 % Lymphocytes % (Manual) 8 % Monocytes % (Manual) 4 % Atypical Lymphocytes 2 % Hypochromasia SLIGHT Anisocytosis SLIGHT Microcytosis SLIGHT Erythrocyte Sedimentation Rate 38 H 0-20 MM/HR Prothrombin Time 13.0 12.2-14.7 SEC INR Comment 0.9 0.8-1.4 Activated Partial Thromboplast Time 27 24-35 SEC Sodium Level 135 135-145 MMOL/L Potassium Level 3.8 3.6-5.0 MMOL/L Chloride Level 106 98-107 MMOL/L Carbon Dioxide Level 15 L 21-32 MMOL/L Anion Gap 14 5-14 MMOL/L Blood Urea Nitrogen 8 7-18 MG/DL Creatinine 0.64 0.60-1.30 MG/DL Estimat Glomerular Filtration Rate > 60 BUN/Creatinine Ratio 13 Glucose Level 88 70-105 MG/DL Lactic Acid Level 1.39 0.50-2.00 MMOL/L Calcium Level 9.4 8.5-10.1 MG/DL Corrected Calcium 9.6 8.5-10.1 MG/DL Magnesium Level 1.5 L 1.6-2.4 MG/DL Total Bilirubin 0.6 0.1-1.0 MG/DL Aspartate Amino Transf (AST/SGOT) 17 5-34 U/L Alanine Aminotransferase (ALT/SGPT) 16 0-55 U/L Alkaline Phosphatase 132 40-136 U/L Troponin I < 0.028 <0.028 NG/ML C-Reactive Protein High Sensitivity 0.79 H 0.00-0.50 MG/DL B-Type Natriuretic Peptide < 10.0 <100.0 PG/ML Total Protein 7.4 6.4-8.2 GM/DL Albumin 3.7 3.2-4.5 GM/DL Amylase Level 53 25-125 U/L Procalcitonin 0.02 <0.10 NG/ML Coronavirus 2019 (JOCELYN) Negative Negative Urine Color YELLOW Urine Clarity SL CLOUDY Urine pH 5.5 5-9 Urine Specific [place] >=1.030 1.016-1.022 Urine Protein 1+ H NEGATIVE Urine Glucose (UA) NEGATIVE NEGATIVE Urine Ketones 3+ H NEGATIVE Urine Nitrite NEGATIVE NEGATIVE Urine Bilirubin 1+ H NEGATIVE Urine Urobilinogen 1.0 < = 1.0 MG/DL Urine Leukocyte Esterase NEGATIVE NEGATIVE Urine RBC (Auto) 1+ H NEGATIVE Urine RBC 0-2 /HPF Urine WBC 2-5 /HPF Urine Squamous Epithelial Cells 2-5 /HPF Urine Crystals NONE /LPF Urine Bacteria FEW H /HPF Urine Casts NONE /LPF Urine Mucus SMALL H /LPF Urine Culture Indicated YES Micro Results Microbiology 04/11/20 Influenza Types A,B Antigen ([facility]) - Final, Complete My Orders Orders - GIANNI RICHARD DO Heart Tones (04/11/20 00:32) Monitor-Rhythm Ecg Trace Only (04/11/20 00:32) Amylase (04/11/20 00:32) BNP (04/11/20:32) Cbc With Automated Diff (04/11/20:) Comprehensive Metabolic Panel (04/11/20:) Lactic Acid Analyzer (04/11/20:) Magnesium (04/11/20:32) Procalcitonin (Pct) (04/11/20:) Protime With Inr (04/11/20:) Partial Thromboplastin Time (04/11/20:) Troponin I (04/11/20:32) Ua Culture If Indicated (04/11/20:) Blood Culture (04/11/20 00:32) Influenza A And B Antigens (04/11/20:32) Ed Iv/Invasive Line Start (04/11/20 00:32) Lactated Ringers (Lr 1000 Ml Iv Solution (04/11/20 00:32) Ondansetron Injection (Zofran Injectio (04/11/20 00:45) Hs C Reactive Protein (04/11/20 00:32) Erythrocyte Sedimentation Rate (04/11/20 00:32) Ekg Tracing (04/11/20 00:32) Chest 1 View, Ap/Pa Only (04/11/20 00:32) Coronavirus Sars-Cov-2 So 2018 (04/11/20 00:32) Covid 19 Inhouse Test (04/11/20 00:32) Manual Differential (04/11/20 01:00) Ceftriaxone For Iv Use (Rocephin For I (04/11/20 02:00) Azithromycin Tablet (Zithromax Tablet) (04/11/20 02:00) Urine Culture (04/11/20 02:00) Medications Given in ED Current Medications Medications Dose Ordered Sig/Lori Route Start Time Stop Time Status Last Admin Dose Admin Azithromycin 500 mg ONCE ONCE PO 04/11/20 02:00 04/11/20 02:02 DC 04/11/20 02:03 500 MG Ceftriaxone Sodium 1000 mg/ Sterile Water 10 ml @ 200 mls/hr ONCE ONCE IV 04/11/20 02:00 04/11/20 02:02 DC 04/11/20 02:02 200 MLS/HR Lactated Ringer's 1,000 ml @ 0 mls/hr Q0M ONCE IV 04/11/20 00:32 04/11/20 00:35 DC 04/11/20 01:02 1,000 MLS/HR Ondansetron HCl 4 mg ONCE ONCE IVP 04/11/20 00:45 04/11/20 00:46 DC 04/11/20 01:00 4 MG Vital Signs/I&O 04/11/20 01:00 Temp 36.8 Pulse 98 Resp 18 B/P (MAP) 130/78 (95) Pulse Ox 98 Capillary Refill : Progress Note : Progress Note PT PLACED IN ISOLATION ROOM PPE WORN AT ALL TIMES COVID-19 TESTING PERFORMED NO COUGH OR DYSPNEA AT ANY TIME PT HAD NO NAUSEA/VOMITING/DIARRHEA DURING ER STAY PT TOLERATING WATER PRIOR TO DISMISSAL GIVEN ROCEPHIN IV AND ZITHROMAX PO GIVEN IV FLUIDS AND ZOFRAN PT ADVISED OF NEED FOR QUARANTINE OF ALL HOUSEHOLD MEMBERS AND CLOSE CONTACTS, AND ADVISED THAT NEGATIVE TEST FOR COVID, DOES NOT GUARANTEE SHE DOES NOT HAVE I T, DISCUSSED FALSE NEGATIVE TESTS, ETC. PT FEELS COMFORTABLE GOING HOME FHR 158 ECG Initial ECG Impression Date: Apr 11, 2020 Initial ECG Impression Time: 01:23 Initial ECG Rate: 64 Initial ECG Rhythm: Normal Sinus Diagnostic Imaging Comments CXR--? MILD RLL INFILTRATE ? PENDING RADIOLOGIST REVIEW Reviewed: Reviewed by Me Departure Impression Primary Impression: Person under investigation for COVID-19 Additional Impressions: 37 weeks gestation of RLL pneumonia Disposition: HOME, SELF-CARE Condition: Improved Departure-Patient Inst. Referrals: SARAH RANDALL DO (PCP) Primary Care Physician NO,LOCAL PHYSICIAN (Family) Primary Care Physician Patient Instructions: Pneumonia, Adult (DC), Coronavirus Disease 2019 (COVID- 19) in (DC), Preventing the Spread of an Infectious Disease Add. Discharge Instructions: LOTS OF CLEAR LIQUIDS--WATER, BROTH, JELLO, GATORADE WHEN NAUSEA IS GONE, ADD BRATS DIET TO CLEAR LIQUIDS--BANANAS, RICE, APPLESAUCE, TOAST, SALTINES TYLENOL NEEDED FOR PAIN OR FEVER FOLLOW UP WITH YOUR OB DR IN 3-4 DAYS FOR FURTHER CARE RETURN TO ER IF SYMPTOMS WORSEN Scripts L. Acidophilus/Pectin, [place] (Acidophilus Capsule) 1 Each Capsule 2 EACH PO QID, #40 CAP Prov: GIANNI RICHARD DO 04/11/20 Ondansetron (Ondansetron Odt) 4 Mg Tab.rapdis 4 MG PO Q4H for Nausea/Vomiting, #10 TAB Prov: GIANNI RICHARD DO 04/11/20 Azithromycin (Zithromax) 500 Mg Tablet 500 MG PO DAILY for 5 Days, #5 TAB Prov: GIANNI RICHARD DO 04/11/20 Cefdinir (Cefdinir) 300 Mg Capsule 300 MG PO BID, #20 CAP Prov: GIANNI RICHARD DO 04/11/20 Work/School Note: Family Work Note Patient Received Medical Care In the Emergency Department On: Apr 10, 2020 Patient Will Be Able to Return to Work/School On: Apr 25, 2020 GIANNI RICHARD DO Apr 11, 2020 01:23
[2020-04-11 01:29] LABS: BASOPHILS % (AUTO) 0 % (0-10); EOSINOPHILS % (AUTO) 0 % (0-10); HEMATOCRIT 40 % (35-52); HEMOGLOBIN 13.8 G/DL (11.5-16.0); LYMPHOCYTES # (AUTO) 1.4 X 10^3 (1.0-4.0); LYMPHOCYTES % (AUTO) 10 % (12-44); MEAN CORPUSCULAR HEMOGLOBIN 34 PG (25-34); MEAN CORPUSCULAR HGB CONC 34 G/DL (32-36); MEAN CORPUSCULAR VOLUME 98 FL (80-99); MEAN PLATELET VOLUME 10.8 FL (7.4-10.4); MONOCYTES # (AUTO) 0.7 X 10^3 (0.0-1.0); MONOCYTES % (AUTO) 5 % (0-12); NEUTROPHILS # (AUTO) 11.7 X 10^3 (1.8-7.8); NEUTROPHILS % (AUTO) 85 % (42-75); PLATELET COUNT 271 10^3/uL (130-400); WHITE BLOOD COUNT 13.8 10^3/uL (4.3-11.0)
[2020-04-11 01:58] LABS: ALANINE AMINOTRANSFERASE 16 U/L (0-55); ALBUMIN 3.7 GM/DL (3.2-4.5); ALKALINE PHOSPHATASE 132 U/L (40-136); AMYLASE 53 U/L (25-125); BILIRUBIN,TOTAL 0.6 MG/DL (0.1-1.0); BUN/CREATININE RATIO 13; CALCIUM 9.4 MG/DL (8.5-10.1); CARBON DIOXIDE 15 MMOL/L (21-32); CHLORIDE 106 MMOL/L (98-107); CREATININE SERUM 0.64 MG/DL (0.60-1.30); GFR ESTIMATED > 60; GLUCOSE 88 MG/DL (70-105); MAGNESIUM 1.5 MG/DL (1.6-2.4); POTASSIUM 3.8 MMOL/L (3.6-5.0); SODIUM 135 MMOL/L (135-145); TOTAL PROTEIN 7.4 GM/DL (6.4-8.2)
[2020-04-11 01:59] LABS: INR 0.9 (0.8-1.4)
[2020-04-11] MEDS ORDERED: AZITHROMYCIN 250 MG TAB (ZITHROMAX) PO ONE (02:00)
[2020-04-11] MEDS ORDERED: cefTRIAXone FOR IV USE 1,000 MG in WATER (STERILE) FOR INJECTION 10 ML IV ONE (02:00)
[2020-04-11 02:04] LABS: CLARITY,URINE SL CLOUDY; COLOR,URINE YELLOW; GLUCOSE, URINE (UA) NEGATIVE (NEGATIVE); KETONES,URINE 3+ (NEGATIVE); LEUKOCYTE ESTERASE ,URINE NEGATIVE (NEGATIVE); NITRITE,URINE NEGATIVE (NEGATIVE); PH,URINE 5.5 (5-9); PROTEIN,URINE 1+ (NEGATIVE)
[2020-04-11 02:07] LABS: ERYTHROCYTE SEDIMENTATION RATE 38 MM/HR (0-20)
[2020-04-11 02:15] LABS: ANISOCYTOSIS SLIGHT; ATYPICAL LYMPHOCYTES 2 %; HYPOCHROMASIA SLIGHT; LYMPHOCYTES % (MANUAL) 8 %; MICROCYTOSIS SLIGHT; MONOCYTES % (MANUAL) 4 %; NEUTROPHILS % (MANUAL) 86 %
[2020-04-11 02:20] LABS: BACTERIA,URINE FEW /HPF; BILIRUBIN,URINE 1+ (NEGATIVE); RBC,URINE 0-2 /HPF
[2020-04-11] MEDS ORDERED: L. A1CAP11 PO (02:38)
[2020-04-11] MEDS ORDERED: ONDA4TAB11 PO (02:38)
[2020-04-11] MEDS ORDERED: AZIT500T PO (02:38)
[2020-04-11] MEDS ORDERED: CEFD300C3 PO (02:38)
[2020-04-11 03:00] VITALS: BP 110/71
--- NOTE | 2020-04-11 06:55 | Diagnostic Imaging Report ---
Indication: Cough and dyspnea Single AP view of the chest is obtained. COMPARISON: No previous study is available for comparison at this time. FINDINGS: Heart size and pulmonary vasculature are within normal limits, and the lungs are clear, bilaterally. IMPRESSION: Unremarkable chest. Dictated by: Dictated on workstation # [id number]
== END 2020-04-11 03:00 | disposition home or self-care (01) ==
LOC: EDUNIT# 00:04 → ER 00:08
DX: O99.513 Diseases of the respiratory system complicating pregnancy, third trimester (principal); J18.9 Pneumonia, unspecified organism; O99.333 Smoking (tobacco) complicating pregnancy, third trimester; F17.210 Nicotine dependence, cigarettes, uncomplicated; Z3A.37 37 weeks gestation of pregnancy; Z88.2 Allergy status to sulfonamides; Z88.1 Allergy status to other antibiotic agents; Z20.828 Contact with and (suspected) exposure to other viral communicable diseases
CPT/HCPCS: 36415; 71045; 80053; 81000; 82150; 83605; 83735; 83880; 84145; 84484; 85007; 85027; 85610; 85652; 85730; 86141; 87040; 87088; 87635; 87804; 93005; 93041

== ENCOUNTER 2020-04-20 06:28 | Inpatient (IN) | payer MEDICAID ==
[~2020-04-20] VITALS: Ht 162.6 cm; Wt 76.4 kg
[2020-04-20] VITALS (36 sets, daily range): BP systolic 98–123; BP diastolic 55–76
[~2020-04-20 06:28] MED LIST changes: +AZIT500T PO; +CEFD300C3 PO; +L. A1CAP11 PO; +ONDA4TAB11 PO
--- NOTE | 2020-04-20 06:30 | NUR ---
GARY SEWELL presented to unit via WC from ED, accompanied by SO, with c/o CONTRACTIONS. GARY SEWELL weighed, gowned, voided, and to bed. EFHM and TOCO applied, VS taken. GARY SEWELL oriented to bed controls, call light, TV, heat, and A/C controls.
[2020-04-20 06:59] LABS: BILIRUBIN,URINE NEGATIVE (NEGATIVE); CLARITY,URINE CLEAR; COLOR,URINE YELLOW; GLUCOSE, URINE (UA) NEGATIVE (NEGATIVE); KETONES,URINE NEGATIVE (NEGATIVE); LEUKOCYTE ESTERASE ,URINE NEGATIVE (NEGATIVE); NITRITE,URINE NEGATIVE (NEGATIVE); PH,URINE 7.5 (5-9); PROTEIN,URINE NEGATIVE (NEGATIVE)
[2020-04-20 07:14] LABS: BACTERIA,URINE FEW /HPF; WBC,URINE 0-2 /HPF
--- NOTE | 2020-04-20 07:32 | NUR ---
Dr. Garcia called and notified of pt arrival. Pt is due 05/02 (38.2wks) c/o ctx that started yesterday but started to increase in frequency and strength around 0400 today. No record found at this time so all of pt history is reported per pt. notified of ctx pattern, FHR, SVE, UA. Orders for admission and IV pain medications rec'd.
[2020-04-20] MEDS ORDERED: D5 LR IV SOLUTION 1,000 ML IV SCH (07:41)
[2020-04-20] MEDS ORDERED: MINERAL OIL CONCENTRATE 99.9% 15 ML UDC TOP PRN (07:45)
[2020-04-20] MEDS ORDERED: BUTORPHANOL INJ 2 MG/ML (STADOL) VIAL IV ONE (07:45)
[2020-04-20] MEDS ORDERED: D5 LR IV SOLUTION 1,000 ML IV ONE (07:47)
--- NOTE | 2020-04-20 07:47 | NUR ---
record located. Partial placenta previa at 21weeks with marginal previa noted at [address] Garcia called to notify. Will come discuss with pt. Continue with current plan of care.
[2020-04-20 08:17] LABS: BASOPHILS % (AUTO) 0 % (0-10); EOSINOPHILS # (AUTO) 0.1 10^3/uL (0.0-0.3); EOSINOPHILS % (AUTO) 1 % (0-10); HEMATOCRIT 39 % (35-52); HEMOGLOBIN 13.4 G/DL (11.5-16.0); LYMPHOCYTES # (AUTO) 1.6 X 10^3 (1.0-4.0); LYMPHOCYTES % (AUTO) 10 % (12-44); MEAN CORPUSCULAR HEMOGLOBIN 34 PG (25-34); MEAN CORPUSCULAR HGB CONC 34 G/DL (32-36); MEAN CORPUSCULAR VOLUME 99 FL (80-99); MEAN PLATELET VOLUME 10.7 FL (7.4-10.4); MONOCYTES # (AUTO) 0.8 X 10^3 (0.0-1.0); MONOCYTES % (AUTO) 5 % (0-12); NEUTROPHILS # (AUTO) 13.1 X 10^3 (1.8-7.8); NEUTROPHILS % (AUTO) 84 % (42-75); PLATELET COUNT 231 10^3/uL (130-400); WHITE BLOOD COUNT 15.6 10^3/uL (4.3-11.0)
[2020-04-20] MEDS ORDERED: fentaNYL 2 mcg/ml BUPIVA 0.125 100 ML ONE (08:50)
[2020-04-20 09:04] LABS: BAND NEUTROPHILS 6 %; BASOPHILS % (MANUAL) 0 %; EOSINOPHILS % (MANUAL) 0 %; LYMPHOCYTES % (MANUAL) 15 %; MONOCYTES % (MANUAL) 6 %; NEUTROPHILS % (MANUAL) 73 %; RBC MORPH NORMAL
--- NOTE | 2020-04-20 09:28 | History & Physical-OB ---
OB - Chief Complaint & HPI Date/Time Date of Admission: Date of Admission: Apr 20, 2020 at 07:32 Chief Complaint/History OB-Reason for Admission/Chief: Onset of Labor Hx : 4 Hx Para: 2 Expected Date of Delivery: May 02, 2020 Gestational Age in Weeks: 38 Gestational Age in Days: 1 Admission Nurse Assessment Rev: Yes History of Labs A+/- HIV - HBsAg- Hep C - Rub I VDRL NR GBS - Other Covid - on 04/11 Allergies and Home Medications Allergies Coded Allergies: sulfamethoxazole (Unverified Allergy, Unknown, RASH, 04/11/20) trimethoprim (Unverified Allergy, Unknown, RASH, 04/11/20) Home Medications Cefdinir 300 Mg Capsule, 300 MG PO BID Prescribed by: GIANNI RICHARD on 04/11/20 0238 Fluoxetine HCl 40 Mg Capsule, 40 MG PO DAILY, (Reported) OB - History Hx of Present Care: Yes Obstetrical History Hx : 4 Hx Para: 2 Hx Termination: Yes (Spontaneous ) Hx Total # of Abortions (Spona: 1 Hx Multiple Gestation: No Hx Stillbirth: No Hx Complication: No Hx Induced Hypertens: No Hx Maternal Gestational Diabet: No Delivery History Hx Dystocia: No Hx Large For Gestational Age I: No Hx Small for Gestational Age I: No Hx Section: No Hx Vaginal Delivery Post C-Sec: No Hx Blood Disorders: No Adverse Rxn to Tranfusion: No Patient Past Medical History none Social History/Family History Alcohol Use: Denies Use Recreational Drug Use: No 2nd Hand Smoke Exposure: No Immunizations Hepatitis A: No Hepatitis B: No Tetanus Booster (TDap): Less than 5yrs OB - Admission Exam Physical Exam Vitals: Vital Signs 04/20/20 04/20/20 06:50 06:54 Temp 37.0 Pulse 66 Resp 18 B/P (MAP) 108/67 (81) Pulse Ox 100 O2 Delivery Room Air Labs Laboratory Tests Test 04/20/20 06:50 04/20/20 08:00 Range/Units Urine Color YELLOW Urine Clarity CLEAR Urine pH 7.5 5-9 Urine Specific [place] 1.010 L 1.016-1.022 Urine Protein NEGATIVE NEGATIVE Urine Glucose (UA) NEGATIVE NEGATIVE Urine Ketones NEGATIVE NEGATIVE Urine Nitrite NEGATIVE NEGATIVE Urine Bilirubin NEGATIVE NEGATIVE Urine Urobilinogen 0.2 < = 1.0 MG/DL Urine Leukocyte Esterase NEGATIVE NEGATIVE Urine RBC (Auto) 1+ H NEGATIVE Urine RBC 10-25 H /HPF Urine WBC 0-2 /HPF Urine Squamous Epithelial Cells 5-10 /HPF Urine Crystals NONE /LPF Urine Bacteria FEW H /HPF Urine Casts NONE /LPF Urine Mucus NEGATIVE /LPF Urine Culture Indicated CULTURE PENDING White Blood Count 15.6 H 4.3-11.0 10^3/uL Red Blood Count 3.98 L 4.35-5.85 10^6/uL Hemoglobin 13.4 11.5-16.0 G/DL Hematocrit 39 35-52 % Mean Corpuscular Volume 99 80-99 FL Mean Corpuscular Hemoglobin 34 25-34 PG Mean Corpuscular Hemoglobin Concent 34 32-36 G/DL Red Cell Distribution Width 12.6 10.0-14.5 % Platelet Count 231 130-400 10^3/uL Mean Platelet Volume 10.7 H 7.4-10.4 FL Neutrophils (%) (Auto) 84 H 42-75 % Lymphocytes (%) (Auto) 10 L 12-44 % Monocytes (%) (Auto) 5 0-12 % Eosinophils (%) (Auto) 1 0-10 % Basophils (%) (Auto) 0 0-10 % Neutrophils # (Auto) 13.1 H 1.8-7.8 X 10^3 Lymphocytes # (Auto) 1.6 1.0-4.0 X 10^3 Monocytes # (Auto) 0.8 0.0-1.0 X 10^3 Eosinophils # (Auto) 0.1 0.0-0.3 10^3/uL Basophils # (Auto) 0.0 0.0-0.1 10^3/uL Neutrophils % (Manual) 73 % Lymphocytes % (Manual) 15 % Monocytes % (Manual) 6 % Eosinophils % (Manual) 0 % Basophils % (Manual) 0 % Band Neutrophils 6 % Blood Morphology Comment NORMAL SARAH RANDALL DO Apr 20, 2020 09:28
[2020-04-20] MEDS ORDERED: LACTATED RINGERS 1,000 ML IV SCH (09:35)
[2020-04-20] MEDS ORDERED: METOCLOPRAMIDE INJ 10 MG/2 ML (REGLAN) IV PRN (09:45)
[2020-04-20] MEDS ORDERED: diphenhydrAMINE 50 MG/ML INJ (BENADRYL) IV PRN (09:45)
[2020-04-20] MEDS ORDERED: NALOXONE 0.4 MG/ML 1 ML (NARCAN) VIAL IV PRN ×2 (09:45)
[2020-04-20] MEDS ORDERED: ONDANSETRON 4 MG/2 ML (SDV) Z0FRAN IV PRN (09:45)
[2020-04-20] MEDS ORDERED: EPIDURAL (fentaNYL 2 MCG/ML BUPIVA 0.125%)100 ML BAG EPI SCH (09:45)
[2020-04-20] MEDS ORDERED: OXYTOCIN PRE-MIX DRIP 500 ML IV SCH ×2 (10:11→12:54)
[2020-04-20] MEDS ORDERED: FLU QUADRIvalent (3YOA+) 60 mcg/0.5 ml 2020-21 (AFLURIA) IM ONE (10:15)
[2020-04-20] MEDS ORDERED: OXYTOCIN PRE-MIX DRIP 500 ML IV ONE (10:20)
[2020-04-20] MEDS ORDERED: LIDOCAINE/EPI 2% 1:200,00 (XYLOCAINE) 10 ML VIAL ONE (12:28)
--- NOTE | 2020-04-20 12:59 | OB Labor & Delivery Record ---
Vag Delivery Note Vag Delivery Note Date of Delivery: 04/20/20 Preoperative Diagnosis: Ysabel Lucero is a 29 /Para 4 / 2,Gestational Age 38 3/7 week gestation in labor, low lying posterior placenta previa (< 1 cm) Postoperative Diagnosis: Same Surgeon: SARAH RANDALL Anesthesia: epidural Delivery Type: vaginal Findings: Viable male infant, apgars pending, weight pending Lacerations: none Intact placenta with 3 vessel cord. No nuchal cord, body cord or shoulder dystocia Estimated Blood Loss: [] ml Complications: None Condition: Stable Description of Procedure: The patient is a 29 year old female who presented in active labor. She was admitted and informed consent was obtained. she has had no bleeding during the and the low lying placenta was found incidentally. We had discussed CS vs Trial of labor and she opted for trial of labor. Her labor course was remarkable for spontaneous labor with pitocin augmentation. SROM at complete dilation. She progressed to complete dilatation and began to push. She was then set up for delivery. The 's head was delivered atraumatically in the MARYAM position. The shoulders and remainder of the infant's body were then delivered without difficulty. Upon delivery, the head was held below the level of the perineum and the mouth and nares were bulb suctioned. The cord was doubly clamped and cut and the was handed off to the pediatric staff. An intact placenta with 3-vessel cord delivered via Mira and there was found to be minimal bleeding.~ Vigorous fundal massage was performed and the fundus was found to be firm. IV oxytocin was given. Examination of the vagina and perineum revealed no lacerations. Following the delivery, sponge, instrument and needle counts were correct. Mom and baby were both in stable condition in the labor suite. Vitals - Labs Vital Signs - I&O Vital Signs Date Time Temp Pulse Resp B/P (MAP) Pulse Ox O2 Delivery O2 Flow Rate FiO2 04/20/20 09:50 68 18 100/62 (75) 98 04/20/20 09:46 55 18 102/58 (73) 96 04/20/20 09:43 57 18 109/57 (74) 97 04/20/20 09:40 60 18 108/61 (77) 98 04/20/20 09:36 64 18 111/62 (78) 04/20/20 09:33 65 18 112/65 (81) 97 04/20/20 09:30 68 18 109/64 (79) 99 04/20/20 09:26 61 18 108/72 (84) 99 04/20/20 09:23 72 18 114/76 (89) 98 04/20/20 09:20 69 18 114/71 (85) 99 04/20/20 09:15 58 18 116/73 (87) 99 04/20/20 09:10 64 18 113/75 (88) 99 04/20/20 09:00 37.1 59 18 115/69 (84) 04/20/20 08:30 98 Room Air 04/20/20 06:54 37.0 66 18 100 Room Air 04/20/20 06:52 37.0 66 18 100 Room Air 04/20/20 06:50 37.0 66 18 108/67 (81) 100 Labs Laboratory Tests 04/20/20 06:50: Urine Color YELLOW, Urine Clarity CLEAR, Urine pH 7.5, Urine Specific [place] 1.010L, Urine Protein NEGATIVE, Urine Glucose (UA) NEGATIVE, Urine Ketones NEGATIVE, Urine Nitrite NEGATIVE, Urine Bilirubin NEGATIVE, Urine Urobilinogen 0.2, Urine Leukocyte Esterase NEGATIVE, Urine RBC (Auto) 1+H, Urine RBC 10-25H, Urine WBC 0-2, Urine Squamous Epithelial Cells 5-10, Urine Crystals NONE, Urine Bacteria FEWH, Urine Casts NONE, Urine Mucus NEGATIVE, Urine Culture Indicated CULTURE PENDING 04/20/20 08:00: White Blood Count 15.6H, Red Blood Count 3.98L, Hemoglobin 13.4, Hematocrit 39, Mean Corpuscular Volume 99, Mean Corpuscular Hemoglobin 34, Mean Corpuscular Hemoglobin Concent 34, Red Cell Distribution Width 12.6, Platelet Count 231, Mean Platelet Volume 10.7H, Neutrophils (%) (Auto) 84H, Lymphocytes (%) (Auto) 10L, Monocytes (%) (Auto) 5, Eosinophils (%) (Auto) 1, Basophils (%) (Auto) 0, Neutrophils # (Auto) 13.1H, Lymphocytes # (Auto) 1.6, Monocytes # (Auto) 0.8, Eosinophils # (Auto) 0.1, Basophils # (Auto) 0.0, Neutrophils % (Manual) 73, Lymphocytes % (Manual) 15, Monocytes % (Manual) 6, Eosinophils % (Manual) 0, Basophils % (Manual) 0, Band Neutrophils 6, Blood Morphology Comment NORMAL SARAH RANDALL DO Apr 20, 2020 12:59
[2020-04-20] MEDS ORDERED: BENZOCAINE/MENTHOL (DERMOPLAST) 60 ML CAN TP PRN (13:00)
[2020-04-20] MEDS ORDERED: WITCH HAZEL(TUCKS) 40 EA JAR TOP PRN (13:00)
[2020-04-20] MEDS ORDERED: TETANUS,DIPTH,PERTUSS P/F (BOOSTRIX) 0.5 ML VIAL IM ONE (13:00)
[2020-04-20] MEDS ORDERED: MEASLES,MUMPS,RUBELLA 1 EA INJ SQ ONE (13:00)
[2020-04-20] MEDS ORDERED: CATHETER FLUSH 10 ML SYR IV SCH ×2 (14:00)
[2020-04-20] MEDS ORDERED: IBUPROFEN 600 MG (MOTRIN) TAB PO ONE (14:53)
[2020-04-20] MEDS: IBUPROFEN 600 MG (MOTRIN) TAB PO SCH ×2 (14:58→21:25)
--- NOTE | 2020-04-20 15:15 | NUR ---
FFU/2, scant/light rubria lochia noted. no clots expressed. Mirtha care done. Pad, underwear, and fresh gown on. Pt assisted to wheelchair without difficulty. Pt wheeled to room 309 accompanied by RN, SO, . Pt assisted to bed and oriented to new room and call light. Pt up to bathroom independently at this time. + void. No needs or concerns voiced.
[2020-04-20] MEDS: ACETAMINOPHEN 500 MG TAB (TYLENOL) PO SCH ×2 (19:40→19:52)
[2020-04-20] MEDS: DOCUSATE SODIUM 100 MG (COLACE) CAP PO SCH (19:41)
[2020-04-21 00:05] VITALS: BP 103/59
[2020-04-21 03:45] VITALS: BP 81/51
[2020-04-21] MEDS: ACETAMINOPHEN 500 MG TAB (TYLENOL) PO SCH ×2 (03:46→11:56)
[2020-04-21] MEDS: IBUPROFEN 600 MG (MOTRIN) TAB PO SCH ×2 (03:46→10:06)
[2020-04-21 06:31] LABS: BASOPHILS % (AUTO) 0 % (0-10); EOSINOPHILS # (AUTO) 0.1 10^3/uL (0.0-0.3); EOSINOPHILS % (AUTO) 1 % (0-10); HEMATOCRIT 36 % (35-52); HEMOGLOBIN 11.9 G/DL (11.5-16.0); LYMPHOCYTES # (AUTO) 1.8 X 10^3 (1.0-4.0); LYMPHOCYTES % (AUTO) 13 % (12-44); MEAN CORPUSCULAR HEMOGLOBIN 33 PG (25-34); MEAN CORPUSCULAR HGB CONC 33 G/DL (32-36); MEAN CORPUSCULAR VOLUME 100 FL (80-99); MEAN PLATELET VOLUME 10.4 FL (7.4-10.4); MONOCYTES # (AUTO) 0.9 X 10^3 (0.0-1.0); MONOCYTES % (AUTO) 7 % (0-12); NEUTROPHILS # (AUTO) 10.5 X 10^3 (1.8-7.8); NEUTROPHILS % (AUTO) 79 % (42-75); PLATELET COUNT 221 10^3/uL (130-400); WHITE BLOOD COUNT 13.2 10^3/uL (4.3-11.0)
[2020-04-21] MEDS ORDERED: PRENATAL VITAMIN 1 EA TAB PO SCH (07:00)
--- NOTE | 2020-04-21 08:20 | NUR ---
DR. ELIZABETH IN TO SEE PT. PLAN FOR CIRCUMCISION THIS A.M. CIRC CARE EXPLAINED TO PARENT.
[2020-04-21] MEDS: DOCUSATE SODIUM 100 MG (COLACE) CAP PO SCH (08:25)
[2020-04-21 08:27] VITALS: BP 94/60
--- NOTE | 2020-04-21 08:30 | NUR ---
AM assessment completed, VS WNL. Pt denies pain. in nursery for assessment and circumcision
[2020-04-21] MEDS ORDERED: FERROUS SULF 325 MG (IRON) TAB PO SCH (09:00)
--- NOTE | 2020-04-21 10:05 | Postpartum Progress Note ---
Note Note Day # 1 s/p Had recent pneumonia and is a chronic smoker. She has a history of frequent pneumonia. Will receive pneumovax and flu vaccine Subjective: Patient is without complaints. Ambulating, voiding. Tolerating a regular diet w ithout nausea or vomiting. Normal lochia. Pain is well controlled with oral pain medications. bottle feeding. Objective: 04/21/20 04/21/20 04/21/20 00:05 03:45 08:27 Temp 36.0 36.0 37.1 Pulse 57 55 55 Resp 16 16 16 B/P (MAP) 103/59 (74) 81/51 (61) 94/60 (71) Pulse Ox 97 97 99 O2 Delivery Room Air Room Air Room Air 04/21/20 00:00 Intake Total 1250 ml Balance 1250 ml Laboratory Tests Test 04/21/20 06:25 Range/Units White Blood Count 13.2 H 4.3-11.0 10^3/uL Red Blood Count 3.63 L 4.35-5.85 10^6/uL Hemoglobin 11.9 11.5-16.0 G/DL Hematocrit 36 35-52 % Mean Corpuscular Volume 100 H 80-99 FL Mean Corpuscular Hemoglobin 33 25-34 PG Mean Corpuscular Hemoglobin Concent 33 32-36 G/DL Red Cell Distribution Width 12.6 10.0-14.5 % Platelet Count 221 130-400 10^3/uL Mean Platelet Volume 10.4 7.4-10.4 FL Neutrophils (%) (Auto) 79 H 42-75 % Lymphocytes (%) (Auto) 13 12-44 % Monocytes (%) (Auto) 7 0-12 % Eosinophils (%) (Auto) 1 0-10 % Basophils (%) (Auto) 0 0-10 % Neutrophils # (Auto) 10.5 H 1.8-7.8 X 10^3 Lymphocytes # (Auto) 1.8 1.0-4.0 X 10^3 Monocytes # (Auto) 0.9 0.0-1.0 X 10^3 Eosinophils # (Auto) 0.1 0.0-0.3 10^3/uL Basophils # (Auto) 0.0 0.0-0.1 10^3/uL Physical Exam: General - Alert and oriented, no apparent distress Abdomen - Soft, appropriately tender to palpation, non-distended, fundus firm at umbilicus Extremities - no edema, negative Amanda's bilaterally Assessment: 1. post- day # 1, status post spontaneous vaginal delivery. Recovering well, hemodynamically stable Plan: Routine care. Encourage breast feeding. Encourage ambulation. Plan for discharge today Vitals - Labs Vital Signs - I&O Vital Signs Date Time Temp Pulse Resp B/P (MAP) Pulse Ox O2 Delivery O2 Flow Rate FiO2 04/21/20 08:27 37.1 55 16 94/60 (71) 99 Room Air 04/21/20 03:45 36.0 55 16 81/51 (61) 97 Room Air 04/21/20 00:05 36.0 57 16 103/59 (74) 97 Room Air 04/20/20 19:45 36.3 63 18 98/58 (71) 98 Room Air 04/20/20 14:47 53 18 112/62 (79) 04/20/20 14:32 37.3 57 18 106/60 (75) 04/20/20 14:17 68 18 110/55 (73) 04/20/20 14:02 58 18 112/70 (84) 04/20/20 13:48 58 18 113/68 (83) 04/20/20 13:05 61 18 123/61 (81) 04/20/20 12:50 74 18 112/72 (85) 04/20/20 12:35 36.9 83 18 116/74 (88) 04/20/20 12:05 50 18 118/70 (86) 04/20/20 11:50 48 18 110/66 (81) 04/20/20 11:35 59 18 105/61 (76) 04/20/20 11:20 51 18 114/62 (79) 96 04/20/20 11:00 49 18 97 04/20/20 10:45 50 18 101/62 (75) 98 04/20/20 10:30 57 18 111/66 (81) 99 04/20/20 10:25 52 18 102/61 (75) 98 04/20/20 10:20 54 18 106/64 (78) 99 04/20/20 10:15 55 18 107/64 (78) 99 04/20/20 10:05 54 18 105/62 (76) 99 I & O 04/21/20 07:00 Intake Total 2250 ml Balance 2250 ml Labs Laboratory Tests 04/21/20 06:25: White Blood Count 13.2H, Red Blood Count 3.63L, Hemoglobin 11.9, Hematocrit 36, Mean Corpuscular Volume 100H, Mean Corpuscular Hemoglobin 33, Mean Corpuscular Hemoglobin Concent 33, Red Cell Distribution Width 12.6, Platelet Count 221, Mean Platelet Volume 10.4, Neutrophils (%) (Auto) 79H, Lymphocytes (%) (Auto) 13, Monocytes (%) (Auto) 7, Eosinophils (%) (Auto) 1, Basophils (%) (Auto) 0, Neutrophils # (Auto) 10.5H, Lymphocytes # (Auto) 1.8, Monocytes # (Auto) 0.9, Eosinophils # (Auto) 0.1, Basophils # (Auto) 0.0 Microbiology 04/20/20 Urine Culture - Final, Complete 3 or more isolates SARAH RANDALL DO Apr 21, 2020 10:05
[2020-04-21] MEDS ORDERED: IBUP-844 PO (10:07)
[2020-04-21] MEDS ORDERED: ACET-93 PO (10:07)
--- NOTE | 2020-04-21 10:08 | Discharge Inst-Women's Service ---
Discharge Inst-Women's Serv Depart Medication/Instructions New, Converted or Re-Newed RX: Transmitted to Pharmacy Final Diagnosis Labor smoking history vaginal delivery low lying placenta Problems Reviewed?: Yes Consults/Follow Up Additional Follow Up: Yes (6 week post ) Activity Activity: Activity as Tolerated Driving Instructions: You May Drive NO SMOKING: NO SMOKING Nothing Inside Vagina: No Douching, No [place], No Tampons Diet Discharge Diet: No Restrictions Symptoms to Report to : Bleeding Excessive, Pain Increased, Fever Over 101 Degrees F, Vaginal Bleeding Increase, Cramps in Feet or Legs, Vaginal Discharge Foul For Any Problems or Questions: Contact Your Physician SARAH RANDALL DO Apr 21, 2020 10:08
[2020-04-21] MEDS ORDERED: PNEUMOCOCCAL VACCINE 0.5 ML/25 MCG VIAL IM ONE (10:15)
[2020-04-21 11:57] VITALS: BP 91/59
--- NOTE | 2020-04-21 13:41 | NUR ---
Pneumonia vaccine given in right deltoid per consent. Vaccine indicated due to history of pneumonia multiple times in past. Pt is a smoker. Tolerated well with no complications. Pt denies any needs or concerns at this time
[2020-04-21 14:40] VITALS: BP 91/59
--- NOTE | 2020-04-21 14:40 | NUR ---
Pt dismissed from [facility] ambulatory with infant, S.O and all personal belongings to private vehicle. Pt stable with no s/s of distress. Accompanied by [facility] staff and S.O.
--- NOTE | 2020-04-21 16:43 | Anesthesia-Regional Post-Op ---
Regional Patient Condition Mental Status: Alert, Oriented x3 Circulation: Same as Pre-Op Headache: Absent Sensation: Full Recovery Motor Block: Absent Post Op Complications Complications None Follow Up Care/Instructions Patient Instructions None needed. Anesthesia/Patient Condition Patient Discharged. Nursing staff and Dr. Garcia stated she was doing well. PETER CHAVARRIA CRNA Apr 21, 2020 16:43
== END 2020-04-21 14:40 | disposition home or self-care (01) | DRG 807 ==
LOC: WSo 06:28 → LDRP 06:30 → WSo 07:32 → LDRP 15:15
PROVIDERS: ADMIT Obstetrics & Gynecology; ATTEND Obstetrics & Gynecology
PROC: 10E0XZZ Delivery of Products of Conception, External Approach (ICD-10-PCS; principal; 2020-04-20)
DX: O44.43 Low lying placenta NOS or without hemorrhage, third trimester (principal); Z37.0 Single live birth; O99.334 Smoking (tobacco) complicating childbirth; F17.210 Nicotine dependence, cigarettes, uncomplicated; Z3A.38 38 weeks gestation of pregnancy; Z87.01 Personal history of pneumonia (recurrent); Z23 Encounter for immunization
CPT/HCPCS: 36415; 81000; 85007; 85025; 85027; 86850; 86900; 86901; 87088; 90686; 90732; 99212